=== PATIENT | male | born 1950 | race Caucasian/White ===

== ENCOUNTER 2016-06-20 12:12 | Day surgery (SDC) | payer BC, MEDICARE ==
--- NOTE | ~2016-06-20 | EGD ---
EGD REPORT [facility] [address] [place] 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 Patient meds and allergies have been reviewed. The risks and benefits of the procedure and the sedation options and risks were discussed with the patient. All questions were answered and informed consent was obtained. Patient identification and proposed procedure were verified prior to the procedure by the physician and the nurse in the pre-procedure area in the procedure room. Mental Status Examination: normal. Airway Examination: normal oropharyngeal airway. Respiratory Examination: poor air movement. CV Examination: RRR, no murmurs, no S3 or S4. ASA Grade Assessment: III - A patient with severe systemic disease. After reviewing the risks and benefits, the patient was deemed in satisfactory condition to undergo the procedure. The anesthesia plan was to use general anesthesia. Immediately prior to administration of medications, the patient was re-assessed for adequacy to receive sedatives. The heart rate, respiratory rate, oxygen saturations, blood pressure, adequacy of pulmonary ventilation, and response to care were monitored throughout the procedure. The physical status of the patient was re-assessed after the procedure. After obtaining informed consent, the BF [id number] was introduced through the mouth, via the endotracheal tube (the patient was intubated for the procedure) and advanced to the tracheobronchial tree. the Bronchoscope was introduced through the mouth, via the endotracheal tube (the patient was intubated for the procedure) and advanced to the tracheobronchial tree. The procedure EGD REPORT [address] [address] NAME: CJ ALBERT : [birth year] STATUS : REG [facility] PAT#: [id number] AGE: 66 ADM/REG DATE : 06/20/16 MR#: [id number] REPORT SERV DATE: 06/20/16 DICTATED BY: ZAK SMITH DATE: 06/20/16 REPORT STATUS : Draft TRANSCRIBED BY: [employer] DATE: 06/20/16 was accomplished without difficulty. The patient tolerated the procedure well. Findings: The endotracheal tube is in good position. The visualized portion of the trachea is of normal caliber. The partha is sharp. The tracheobronchial tree was examined to at least the first subsegmental level. Bronchial mucosa is grossly abnormal throughout the distal trachea, MIS and RLL most concerning for tumor infiltration. There was bright blood throughout the entire tracheobronchial tree presumably from the friable abnormal mucosa (see pictures) Brushings were obtained in the left mainstem bronchus of the lung and in the right mainstem bronchus of the lung and sent for routine cytology. One sample was obtained. Endobronchial biopsies were performed at the partha, in the left mainstem bronchus of the lung and in the right mainstem bronchus of the lung using a forceps and sent for histopathology examination. Three samples were obtained. EBUS TBNA of lymph node level 11R x 4 passes for cytology EBUS TBNA of lymph node level 7 x 4 passes for cytology EBUS TBNA of lymph node level 11L x 4 passes for cytology Bronchoalveolar lavage was performed in the left lower lobe of the lung and sent for routine cytology. 120 mL of fluid were instilled. 30 mL were returned. The return was cellular. There were no mucoid plugs in the return fluid The FiO2 was then lowered to less than forty percent and argon plasma coagulation therapy was performed (0.8 L/min, 15 weaver) for destruction of the abnormal friable mucosa in the MIS, distal trachea and LMS. Hemostasis achieved at the close of the case. Impression: Bronchial mucosa is grossly abnormal throughout the distal trachea, MIS and RLL most concerning for tumor infiltration. Please await final pathology results: "Unclear if this represents malignant disease, but suspicious" Ablation of abnormal friable mucosa in the distal trachea, MIS and LMS. Recommendation: - Await test results. - Follow up with referring physician in 1-2 weeks. - If found to have malignant disease, we will make arrangements for an MRI of the brain with and without contrast, PET/CT scan and medical oncology consultation. - If found to have benign disease, recommend repeat bronchoscopy. Attending Participation: I personally performed the entire procedure. GENTRY SMITH MD EGD REPORT [facility] [address] [place] [address] NAME: CJ ALBERT : 52 STATUS : REG [facility] PAT#: [id number] AGE: 66 ADM/REG DATE : 06/20/16 MR#: [id number] REPORT SERV DATE: 06/20/16 DICTATED BY: ZAK SMITH DATE: 06/20/16 REPORT STATUS : Draft TRANSCRIBED BY: [employer] DATE: 06/20/16 06/20/2016 3:59 PM This report has been signed electronically. Number of Addenda: 0 Note Initiated On: 06/20/2016 12:44 PM [address] [facility] [facility] [address] [place] [id number]
[~2016-06-20 12:12] MED LIST: ALBUTEROL5 INH; AMB10 PO; CO Q-10100 MG PO; FISH-EPA1000 MG PO; FLONASE NAS; GLUCPH PO; KLONO5 PO; MELATONIN5 M1 PO; MULTIVITAMI1 PO; OTC POTASSIUM PO; P10 PO; POTASSIUM; PRIN10 PO; PRIN20 PO; PROAIR HFA INH; SAW PALMETTO; SAW PALMETTO PO; STATIN PO; SYMBICORT 160/41 INH INH; VITAMIN C500 M3 PO; ZANTAC150 MG PO; ZOCOR40 PO; ZOL100 PO
[2016-06-20 12:30] LABS: BASOPHILS 0.3 %; BASOPHILS ABSOLUTE 0.02 10/3/uL (0.0-0.16); EOSINOPHILS 4.3 %; EOSINOPHILS ABSOLUTE 0.34 10/3/uL (0.0-0.53); HEMATOCRIT 40.9 % (40.0-51.0); HEMOGLOBIN 13.5 g/dL (13.6-17.8); IMMATURE GRANULOCYTES 0.4 %; IMMATURE GRANULOCYTES ABSOLUTE 0.03 10/3/uL (0.0-0.11); LYMPHOCYTES 17.6 %; LYMPHOCYTES ABSOLUTE 1.38 10/3/uL (0.67-4.30); MEAN CORPUSCULAR HEMOGLOB 29.2 pg (26.0-34.0); MEAN PLATELET VOLUME 9.2 fL (9.2-13.0); MONOCYTES 6.4 %; NEUTROPHILS ABSOLUTE 5.56 10/3/uL (2.02-8.40); PLATELET COUNT 187 10/3/uL (150-400); RBC DISTRIBUTION WIDTH 14.5 % (12.0-16.0); RED CELL COUNT 4.63 10/6/uL (4.7-6.1); WHITE BLOOD CELLS 7.8 10/3/uL (4.5-10.5)
[2016-06-20 12:32] LABS: MANUAL DIFF NO %; MEAN CORPUSCULAR VOLUME 88.3 fL (80-100)
[2016-06-20 12:37] LABS: INTERNATIONAL NORMAL RATI 1.1 UNITS (-); PARTIAL THROMBO TIME 30.5 SEC (22.5-37.2)
[2016-06-20 12:42] LABS: BUN (BLOOD UREA NITROGEN) 16 MG/DL (6-23); CALCIUM, SERUM 9.1 MG/DL (8.5-10.4); CHLORIDE, SERUM 103 MMOL/L (96-112); CO2 (CARBON DIOXIDE) 27 MMOL/L (24-34); CREATININE 1.07 MG/DL (0.70-1.30); GFR AFRICAN AMERICAN 84 ML/MIN (>=60); GFR NON AFRICAN AMERICAN 72 ML/MIN (>=60); GLUCOSE, SERUM 127 MG/DL (60-99); POTASSIUM, SERUM 4.6 MMOL/L (3.5-5.3); SODIUM, SERUM 140 MMOL/L (135-148)
== END 2016-06-20 18:55 | disposition home or self-care (01) ==
LOC: DMU 12:12
PROVIDERS: Internal Medicine
PROC: 0BB38ZX Excision of Right Main Bronchus, Via Natural or Artificial Opening Endoscopic, Diagnostic (ICD-10-PCS; principal; 2016-06-20 13:30)
PROC: 0BB78ZX Excision of Left Main Bronchus, Via Natural or Artificial Opening Endoscopic, Diagnostic (ICD-10-PCS; 2016-06-20 13:30)
PROC: 07B74ZX Excision of Thorax Lymphatic, Percutaneous Endoscopic Approach, Diagnostic (ICD-10-PCS; 2016-06-20 13:30)
PROC: 07B74ZX Excision of Thorax Lymphatic, Percutaneous Endoscopic Approach, Diagnostic (ICD-10-PCS; 2016-06-20 13:30)
DX: B40.2 Pulmonary blastomycosis, unspecified (principal); G47.33 Obstructive sleep apnea (adult) (pediatric); I10 Essential (primary) hypertension; E11.9 Type 2 diabetes mellitus without complications; J45.909 Unspecified asthma, uncomplicated; J44.9 Chronic obstructive pulmonary disease, unspecified; E78.00 Pure hypercholesterolemia, unspecified; K21.9 Gastro-esophageal reflux disease without esophagitis; F41.9 Anxiety disorder, unspecified; D64.9 Anemia, unspecified
CPT/HCPCS: 71010; 80048; 82962; 85025; 85610; 85730; 88112; 88173; 88305; 88312; 88333; 93005; 94640; 94660; A9270-GY; C1725; J2710; J3010